=== PATIENT | female | born 1970 | race Two or more races ===

== ENCOUNTER 2024-10-10 07:04 | Emergency (ER) | payer OTHER ==
[~2024-10-10] VITALS: Ht 177.8 cm; Wt 65.8 kg
[2024-10-10 08:10] LABS: BASOPHILS % (AUTO) 0.3 % (0.0-2.0); EOSINOPHILS % (AUTO) 0.1 % (0.0-6.0); HEMATOCRIT 38 % (33-45); HEMOGLOBIN 12.9 g/dL (11.5-14.8); LYMPHOCYTES # (AUTO) 1.3 K/uL (0.8-4.8); LYMPHOCYTES % (AUTO) 12.5 % (20.0-44.0); MEAN CORPUSCULAR HEMOGLOBIN 30 PG (26.0-33.0); MEAN CORPUSCULAR HGB CONC 34 g/dl (31.0-36.0); MEAN CORPUSCULAR VOLUME 89 fL (82-100); MONOCYTES # (AUTO) 0.6 K/uL (0.1-1.30); MONOCYTES % (AUTO) 5.2 % (2.0-12.0); NEUTROPHILS # (AUTO) 8.7 K/uL (1.8-8.9); NEUTROPHILS % (AUTO) 81.9 % (43.0-81.0); PLATELET COUNT (AUTO) 263 K/uL (150-450); RED CELL DISTRIBUTION WIDTH 13.1 % (11.5-15.0); WHITE BLOOD COUNT (AUTO) 10.7 K/uL (4.3-11.0)
[2024-10-10 08:19] LABS: CALCIUM, SERUM 8.7 mg/dL (8.5-10.1); CREATININE 0.7 mg/dL (0.6-1.3); POTASSIUM 3.6 mmol/L (3.5-5.1)
[2024-10-10] MEDS ORDERED: IBUP-1955 PO (08:23)
[2024-10-10] MEDS ORDERED: HYDR-4303 PO (08:23)
[2024-10-10] MEDS ORDERED: IBUPROFEN 600 MG TABLET ONE (08:25)
[2024-10-10] MEDS: IBUPROFEN 600 MG TABLET PO ONE (08:27)
[2024-10-10 08:34] LABS: INR 0.97 (0.91-1.10); PARTIAL THROMBOPLASTIN TIME 22.8 SEC (24.3-34.3); PROTHROMBIN TIME 10.3 SECS (9.2-11.1)
[2024-10-10 09:02] VITALS: BP 129/84; TEMP 98.3; O2SAT 98
== END 2024-10-10 09:02 | disposition home or self-care (01) ==
LOC: ER 07:14
DX: S52.092A Other fracture of upper end of left ulna, initial encounter for closed fracture (principal); S00.81XA Abrasion of other part of head, initial encounter; R07.9 Chest pain, unspecified; Z60.2 Problems related to living alone; W01.0XXA Fall on same level from slipping, tripping and stumbling without subsequent striking against object, initial encounter; Y93.89 Activity, other specified; Y92.89 Other specified places as the place of occurrence of the external cause; Y99.8 Other external cause status
CPT/HCPCS: 36415; 71045-TC; 73070-TC; 80048-TC; 85025-TC; 85730-TC